=== PATIENT | male | born 1975 | race Caucasian/White ===

== ENCOUNTER 2021-04-21 23:41 | Emergency (ER) | payer BC ==
[2021-04-22 00:15] LABS: HEMOGLOBIN 16.2 gm/dl (14.0-17.5); RED BLOOD COUNT 5.39 M/UL (4.20-5.50); WHITE BLOOD COUNT 10.4 K/UL (4.5-11.0)
[2021-04-22 00:36] LABS: BUN/CREATININE RATIO 11 (0-10)
== END 2021-04-22 04:30 | disposition home or self-care (01) ==
LOC: ER1 23:41
PROVIDERS: Physician Assistant
DX: R07.89 Other chest pain (principal); R07.2 Precordial pain; M79.602 Pain in left arm; Z88.0 Allergy status to penicillin; Z88.8 Allergy status to other drugs, medicaments and biological substances
CPT/HCPCS: 71045; 80053; 82550; 82553; 83874; 84484; 85025; 85379; 85610; 85730; 93005; 99285; Q9967